=== PATIENT | female | born 1990 | race Two or more races ===

== ENCOUNTER 2023-07-08 04:19 | Day surgery (SDC) | payer OTHER ==
[2023-07-07 12:25] VITALS: BMI 38.4
[2023-07-08 09:01] VITALS: RESP 20
[2023-07-08] MEDS ORDERED: LIDOCAINE HCL/PF 2% SDV 5ML VIAL INF ONE (11:22)
[2023-07-08] MEDS ORDERED: LIDOCAINE HCL 1% PRESERVATIVE FREE - 30ML VIAL IJ ONE (11:22)
[2023-07-08] MEDS ORDERED: BUPIVACAINE HCL/PF 0.75% 10 ML VIAL NR ONE (11:27)
[2023-07-08 11:44] VITALS: BP 118/71; PULSE 76; TEMP 98
[2023-07-08] MEDS ORDERED: ACETAMINOPHEN 500 MG TABLET (FP) PO PRN (22:32)
== END 2023-07-08 12:34 | disposition home or self-care (01) ==
LOC: JASU-SURG 04:19
PROVIDERS: ATTEND Pain Medicine Pain Medicine
PROC: 3E0T33Z Introduction of Anti-inflammatory into Peripheral Nerves and Plexi, Percutaneous Approach (ICD-10-PCS; 2023-07-08)
PROC: 3E0T3BZ Introduction of Anesthetic Agent into Peripheral Nerves and Plexi, Percutaneous Approach (ICD-10-PCS; principal; 2023-07-08 09:45)
DX: M47.816 Spondylosis without myelopathy or radiculopathy, lumbar region (principal)
CPT/HCPCS: 76000-TC-FY; 81025

== ENCOUNTER 2023-08-08 04:22 | Day surgery (SDC) | payer OTHER ==
[2023-08-06 12:28] VITALS: BMI 38.2
[~2023-08-08 04:22] MED LIST: BUPIVACAINE HCL/PF 0.75% 10 ML VIAL NR ONE; LIDOCAINE 1% P/F 10 MG/ML VIAL INF ONE
[2023-08-08] MEDS ORDERED: TRIAMCINOLONE ACET 40MG/1ML VIAL ONE (07:03)
[2023-08-08] MEDS ORDERED: BUPIVACAINE HCL/PF 0.75% 10 ML VIAL ONE (07:03)
[2023-08-08] MEDS ORDERED: LIDOCAINE HCL/PF 1% SDV 5ML VIAL ONE (07:03)
[2023-08-08 07:47] VITALS: RESP 20
[2023-08-08] MEDS ORDERED: ACETAMINOPHEN 500 MG TABLET (FP) PO PRN (09:21)
[2023-08-08 11:09] VITALS: BP 102/54; PULSE 71; TEMP 97.5
== END 2023-08-08 12:57 | disposition home or self-care (01) ==
LOC: JASU-SURG 04:22
PROVIDERS: ATTEND Pain Medicine Pain Medicine
PROC: 3E0T33Z Introduction of Anti-inflammatory into Peripheral Nerves and Plexi, Percutaneous Approach (ICD-10-PCS; 2023-08-08)
PROC: 3E0T3BZ Introduction of Anesthetic Agent into Peripheral Nerves and Plexi, Percutaneous Approach (ICD-10-PCS; principal; 2023-08-08 09:30)
DX: M48.061 Spinal stenosis, lumbar region without neurogenic claudication (principal)
CPT/HCPCS: 76000-TC-FY; 81025

== ENCOUNTER 2023-08-26 04:37 | Day surgery (SDC) | payer OTHER ==
[2023-08-21 08:14] VITALS: BMI 38.2
[2023-08-26] MEDS ORDERED: LIDOCAINE HCL/PF 1% SDV 5ML VIAL ONE (07:18)
[2023-08-26] MEDS ORDERED: LIDOCAINE HCL/PF 2% SDV 5ML VIAL ONE (07:18)
[2023-08-26] MEDS ORDERED: BUPIVACAINE HCL/PF 0.5% (5MG/ML) 10 ML VIAL ONE (07:18)
[2023-08-26] MEDS ORDERED: ACETAMINOPHEN 500 MG TABLET (FP) PO PRN (10:33)
[2023-08-26] MEDS ORDERED: BUPIVACAINE HCL/PF 0.75% 10 ML VIAL NR ONE (12:23)
[2023-08-26] MEDS ORDERED: LIDOCAINE HCL 1% PRESERVATIVE FREE - 30ML VIAL IJ ONE (12:23)
[2023-08-26] MEDS ORDERED: LIDOCAINE HCL/PF 2% SDV 5ML VIAL INF ONE (12:23)
[2023-08-26] MEDS ORDERED: DEXAMETHASONE SOD PHOSPHATE 10 MG/1 ML VIAL IVPUSH ONE (12:23)
[2023-08-26 12:57] VITALS: BP 103/73; PULSE 80; RESP 16; TEMP 97.8
== END 2023-08-26 13:05 | disposition home or self-care (01) ==
LOC: JASU-SURG 04:37
PROVIDERS: ATTEND Pain Medicine Pain Medicine
PROC: 015B3ZZ Destruction of Lumbar Nerve, Percutaneous Approach (ICD-10-PCS; principal; 2023-08-26 11:30)
DX: M47.816 Spondylosis without myelopathy or radiculopathy, lumbar region (principal)
CPT/HCPCS: 76000-TC-FY; 81025; J1100

== ENCOUNTER 2023-09-16 03:41 | Day surgery (SDC) | payer OTHER ==
[2023-09-12 10:54] VITALS: BMI 37.6
[2023-09-16] MEDS ORDERED: DEXAMETHASONE SOD PHOSPHATE 10 MG/1 ML VIAL ONE (07:39)
[2023-09-16] MEDS ORDERED: LIDOCAINE HCL/PF 1% SDV 5ML VIAL ONE (07:39)
[2023-09-16] MEDS ORDERED: ACETAMINOPHEN 500 MG TABLET (FP) PO PRN (09:39)
[2023-09-16 10:01] VITALS: RESP 18
[2023-09-16] MEDS: IOHEXOL 180 MG/1 ML ML IJ ONE (11:13)
[2023-09-16] MEDS: LIDOCAINE 1% P/F 10 MG/ML VIAL INF ONE (11:13)
[2023-09-16] MEDS: DEXAMETHASONE SOD PHOSPHATE 10 MG/1 ML VIAL IVPUSH ONE (11:15)
[2023-09-16 12:38] VITALS: BP 113/73; PULSE 71; TEMP 97.8
== END 2023-09-16 11:35 | disposition home or self-care (01) ==
LOC: JASU-SURG 03:41
PROVIDERS: ATTEND Pain Medicine Pain Medicine
PROC: 3E0R3BZ Introduction of Anesthetic Agent into Spinal Canal, Percutaneous Approach (ICD-10-PCS; 2023-09-16)
PROC: 3E0R33Z Introduction of Anti-inflammatory into Spinal Canal, Percutaneous Approach (ICD-10-PCS; principal; 2023-09-16 11:15)
DX: M54.16 Radiculopathy, lumbar region (principal)
CPT/HCPCS: 76000-TC-FY; 81025; J1100

== ENCOUNTER 2023-10-14 05:17 | Day surgery (SDC) | payer OTHER ==
[2023-10-09 10:52] VITALS: BMI 37.6
[2023-10-14] MEDS ORDERED: LIDOCAINE HCL/PF 1% SDV 5ML VIAL ONE (07:23)
[2023-10-14] MEDS ORDERED: DEXAMETHASONE SOD PHOSPHATE 10 MG/1 ML VIAL ONE (07:23)
[2023-10-14] MEDS ORDERED: ACETAMINOPHEN 500 MG TABLET (FP) PO PRN (12:58)
== END 2023-10-14 09:26 | disposition home or self-care (01) ==
LOC: JASU-SURG 05:17
PROVIDERS: ATTEND Pain Medicine Pain Medicine
DX: Z53.8 Procedure and treatment not carried out for other reasons (principal)
CPT/HCPCS: J1100

== ENCOUNTER 2023-10-14 09:16 | Emergency (ER) | payer OTHER ==
[2023-10-14 10:23] VITALS: BP 128/80; PULSE 86; RESP 20; TEMP 98.4; BMI 37.5
== END 2023-10-14 10:46 | disposition home or self-care (01) ==
LOC: JERFT 09:16
DX: M54.9 Dorsalgia, unspecified (principal); G89.29 Other chronic pain; V49.50XA Passenger injured in collision with unspecified motor vehicles in traffic accident, initial encounter; Y92.410 Unspecified street and highway as the place of occurrence of the external cause
CPT/HCPCS: 99282-25

== ENCOUNTER 2023-10-21 05:05 | Day surgery (SDC) | payer OTHER ==
[2023-10-20 11:54] VITALS: BMI 37.5
[2023-10-21] MEDS ORDERED: BUPIVACAINE HCL/PF 0.75% 10 ML VIAL ONE (07:12)
[2023-10-21] MEDS ORDERED: LIDOCAINE HCL/PF 1% SDV 5ML VIAL ONE (07:13)
[2023-10-21] MEDS ORDERED: DEXAMETHASONE SOD PHOSPHATE 10 MG/1 ML VIAL ONE (09:43)
[2023-10-21] MEDS: LIDOCAINE HCL 1% PRESERVATIVE FREE - 30ML VIAL IJ ONE ×2 (09:55→09:57)
[2023-10-21] MEDS: IOHEXOL 180 MG/1 ML ML IJ ONE ×2 (09:56→09:58)
[2023-10-21] MEDS: DEXAMETHASONE SOD PHOSPHATE 10 MG/1 ML VIAL IVPUSH ONE (09:58)
[2023-10-21 11:23] VITALS: BP 112/62; PULSE 75; RESP 18; TEMP 98
== END 2023-10-21 10:15 | disposition home or self-care (01) ==
LOC: JASU-SURG 05:05
PROVIDERS: ATTEND Pain Medicine Pain Medicine
PROC: 3E0R3BZ Introduction of Anesthetic Agent into Spinal Canal, Percutaneous Approach (ICD-10-PCS; 2023-10-21)
PROC: 3E0R33Z Introduction of Anti-inflammatory into Spinal Canal, Percutaneous Approach (ICD-10-PCS; principal; 2023-10-21 10:00)
DX: M54.16 Radiculopathy, lumbar region (principal)
CPT/HCPCS: 76000-TC-FY; 81025; J1100